=== PATIENT | male | born 2000 | race Asian ===

== ENCOUNTER 2019-01-26 22:09 | Emergency (ER) | payer SELFPAY ==
[2019-01-27] MEDS ORDERED: Lidocaine 1% w/Epinephrine 1:100K 20 ML VIAL ONE (00:36)
[2019-01-27] MEDS ORDERED: Bacitracin 1 PK ONE (01:08)
== END 2019-01-27 01:36 | disposition home or self-care (01) ==
LOC: ERS 22:09
DX: S01.81XA Laceration without foreign body of other part of head, initial encounter (principal); X58.XXXA Exposure to other specified factors, initial encounter
CPT/HCPCS: 12011

== ENCOUNTER 2019-02-03 16:14 | Emergency (ER) | payer SELFPAY | END 2019-02-03 16:58 | disposition home or self-care (01) | LOC: ERS 16:14 | DX: S01.112D Laceration without foreign body of left eyelid and periocular area, subsequent encounter (principal) ==